=== PATIENT | female | born 1975 | race Caucasian/White ===

== ENCOUNTER 2016-06-25 18:31 | Emergency (ER) | payer OTHER ==
--- NOTE | 2016-06-25 19:57 | ERPHSYRPT ---
- History of Present Illness Time Seen by Provider: 06/25/16 19:50 Source: patient, family Exam Limitations: no limitations Patient Subjective Stated Complaint: PT REPORTS MISSING A STEP ET FALLING ONTO RIGHT KNEE-REPROTS PAIN ONLY WHEN SHE PUTS PRESSURE ON IT-DENIES PAIN ELSEWHERE Triage Nursing Assessment: SUPERFICIAL ABRASIONS NOTED TO RIGHT KNEE-PT LIMPS BUT CAN BEAR WT ON KNEE Physician History: The patient is a 41-year-old female with her complaining that she missed a step while coming out of her house and fell onto her right knee on the concrete. She has an abrasion on the right knee and it hurts to bend the knee and to walk. Her tetanus vaccination is approximate 14 years ago. Her past medical history is unremarkable. Occurred: just prior to arrival Reason for Fall: lost balance, fell from standing pos Injuries/Pain Location: lower extremity (right knee) Loss of Consciousness: no loss of consciousness Quality: aching Severity of Pain-Max: severe Severity of Pain-Current: moderate Modifying Factors: Improves With: nothing Associated Symptoms (Fall): denies symptoms Allergies/Adverse Reactions: No Known Drug Allergies Allergy (Unverified 06/25/16 19:16) Home Medications: No Home Meds 1 ea MC UD 06/25/16 [History] Hx Tetanus, Diphtheria Vaccination/Date Given: No Hx Influenza Vaccination/Date Given: No Hx Pneumococcal Vaccination/Date Given: No Immunizations Up to Date: Yes - Review of Systems Constitutional: No Fever, No Chills Eyes: No Symptoms Ears, Nose, & Throat: No Symptoms Respiratory: No Cough, No Dyspnea Cardiac: No Chest Pain, No Edema, No Syncope Abdominal/Gastrointestinal: No Abdominal Pain, No Nausea, No Vomiting, No Diarrhea Genitourinary Symptoms: No Dysuria Musculoskeletal: Fall, Injury, Joint Pain Skin: Other (abrasion) Neurological: No Dizziness, No Focal Weakness, No Sensory Changes Psychological: No Symptoms Endocrine: No Symptoms Hematologic/Lymphatic: No Symptoms Immunological/Allergic: No Symptoms All Other Systems: Reviewed and Negative - Past Medical History Pertinent Past Medical History: Yes Psycho-Social History: Anxiety, Depression - Past Surgical History Past Surgical History: Yes Gastrointestinal: Cholecystectomy - Social History Smoking Status: Never smoker Exposure to second hand smoke: No Drug Use: none Patient Lives Alone: No - Female History Hx Last Menstrual Period: WK AGO - Nursing Vital Signs Nursing Vital Signs: Initial Vital Signs Temperature 98.1 F Temperature Source Oral Pulse Rate 108 Respiratory Rate 20 Blood Pressure [Right Arm] 158/94 Pain Intensity 0 - Angel Coma Score Best Eye Response ([place]): (4) open spontaneously Best Verbal Response (Angel): (5) oriented Best Motor Response (Angel): (6) obeys commands Angel Total: 15 - Physical Exam General Appearance: mild distress Head Injury: no evidence of injury Eye Exam: PERRL/EOMI ENT Exam: airway nml Neck Exam: normal inspection, No tenderness Respiratory/Chest Exam: normal breath sounds, No chest tenderness, No respiratory distress Cardiovascular Exam: normal heart sounds, regular rate/rhythm Gastrointestinal Exam: soft, No tenderness, No distention, No guarding, No ecchymosis Rectal Exam: not done Back Exam: normal inspection, No vertebral tenderness Extremity Exam: evidence of injury, other (Examination of the right knee reveals numerous superficial abrasions over the surface skin of the patella. This area is also slightly swollen and erythematous. There is tenderness to flexion of the right knee joint. The knee joint has good stability.) Neurologic Exam: alert, oriented x 3, cooperative, sensation nml, No motor deficits Skin Exam: normal color, warm, dry SpO2 Interpretation: normal SpO2: 99 Oxygen Delivery: Room Air - Radiology Exams Right Knee X-ray Interpretation: Interpreted by me, Negative, No Fracture Ordered Tests: Active Orders 24 hr Category Date Time Status Cold Application STAT Care 06/25/16 20:01 Active KNEE (3 VIEWS) Stat Exams 06/25/16 20:01 Ordered Medication Summary Discontinued Medications Generic Name Dose Route Start Last Admin Trade Name Freq PRN Reason Stop Dose Admin Diphtheria/Tetanus/Acell Pertussis 0.5 ml 06/25/16 20:02 06/25/16 20:08 Adacel Vial IM 06/25/16 20:03 0.5 ml .ONCE ONE Administration Diphtheria/Tetanus/Acell Pertussis Confirm 06/25/16 20:05 Adacel Vial Administered 06/25/16 20:06 Dose 0.5 ml IM .STK-MED ONE Ibuprofen 600 mg 06/25/16 20:01 06/25/16 20:08 Motrin 600 Mg PO 06/25/16 20:02 600 mg STAT ONE Administration Ibuprofen Confirm 06/25/16 20:05 Motrin 600 Mg Administered 06/25/16 20:06 Dose 600 mg .ROUTE .STK-MED ONE - Progress Progress: improved Counseled pt/family regarding: diagnosis, rad results - Departure Time of Disposition: 20:41 Departure Disposition: Home Clinical Impression: Contusion of right knee Condition: Stable Critical Care Time: No Additional Instructions: You have a contusion and abrasion of your right knee. You were given ibuprofen 600 mg in the ER. You also were given a tetanus vaccination in the ER. Take tylenol and ibuprofen as needed. Apply ice as needed.
[2016-06-25] MEDS ORDERED: MOTRIN 600 MG PO ONE (20:01)
[2016-06-25] MEDS ORDERED: Adacel Vial IM ONE ×2 (20:02→20:05)
[2016-06-25] MEDS ORDERED: MOTRIN 600 MG ONE (20:05)
[2016-06-25] MEDS ORDERED: BACIGUENT PACKET TP ONE (20:49)
[2016-06-25] MEDS ORDERED: BACIGUENT PACKET ONE (20:51)
[2016-06-25 20:57] VITALS: BP 139/90; PULSE 88; O2SAT 98
--- NOTE | 2016-06-26 09:06 | XRAY ---
Indication: Pain following trauma. Comparison: None 3 views of the right knee obtained. No bony, articular, or soft tissue abnormalities.
== END 2016-06-25 21:00 | disposition home or self-care (01) ==
LOC: ED 18:31
DX: S80.01XA Contusion of right knee, initial encounter (principal); S80.211A Abrasion, right knee, initial encounter; W10.9XXA Fall (on) (from) unspecified stairs and steps, initial encounter
CPT/HCPCS: 73562; 90471; 90715; 99283; A9270-GY

== ENCOUNTER 2019-07-25 15:06 | Emergency (ER) | payer OTHER | END 2019-07-25 16:00 | disposition left against medical advice (07) | LOC: ED 15:06 | DX: Z53.9 Procedure and treatment not carried out, unspecified reason (principal) ==

== ENCOUNTER 2023-09-23 23:13 | Emergency (ER) | payer OTHER ==
[2023-09-23 23:21] VITALS: TEMP 98.1
--- NOTE | 2023-09-23 23:55 | ERPHSYRPT ---
- History of Present Illness Time Seen by Provider: 09/23/23 23:45 Source: patient Exam Limitations: no limitations Patient Subjective Stated Complaint: dizziness, shaking Triage Nursing Assessment: Pt ambulated into ER with standby assist of her h usband. Pt was talking with her sister and became dizzy and started shaking. Pt denies any dizziness at this time. Pt was shaky/wobbly when ambulating into ER. Lungs clear, heart tones reg/tachy, abd lg, soft with with active bs x4 quad, nontender. Pt is alert and oriented x4, spouse at bedside. Pt denies any falls or loc. Physician History: 48-year-old female history of hypercholesterolemia presents to the emergency department for evaluation of acute onset dizziness. Patient was at home sitting speaking to her sister when symptoms started. Patient states she began to shake. Patient states she felt nervous. Symptoms started approximately 1 hour prior to arrival patient felt her gait was unsteady. Patient ambulated in our ED with assistance. Patient states her dizziness has improved not completely resolved. No associated numbness tingling or weakness. No focal or lateralizing symptomology. No nausea no vomiting. Symptoms are moderate in intensity. No specific worsening improving factors. Patient otherwise feels well. She voices no other complaints or concerns at this time. Portions of this note were created with voice recognition technology. There may be grammatical, spelling, punctuation or sound alike errors Timing/Duration: today Severity: moderate Modifying Factors: Improves With: nothing Associated Symptoms: denies symptoms Allergies/Adverse Reactions: No Known Drug Allergies Allergy (Verified 09/23/23 23:34) Home Medications: Duloxetine HCl [Cymbalta] 60 mg PO DAILY 09/23/23 [History] Hx Tetanus, Diphtheria Vaccination/Date Given: Yes Hx Influenza Vaccination/Date Given: No Hx Pneumococcal Vaccination/Date Given: No Travel Risk - International Travel Have you traveled outside of the country in past 3 weeks: No - Emerging Infectious Disease Are you exhibiting symptoms associated with any current EIDs: No - Review of Systems Constitutional: No Symptoms, No Fever, No Chills Eyes: No Symptoms Ears, Nose, & Throat: No Symptoms Respiratory: No Symptoms, No Cough, No Dyspnea Cardiac: No Symptoms, No Chest Pain, No Edema, No Syncope Abdominal/Gastrointestinal: No Symptoms, No Abdominal Pain, No Nausea, No Vomiting, No Diarrhea Genitourinary Symptoms: No Symptoms, No Dysuria Musculoskeletal: No Symptoms, No Back Pain, No Neck Pain Skin: No Symptoms, No Rash Neurological: No Symptoms, No Dizziness, No Focal Weakness, No Sensory Changes Psychological: No Symptoms Endocrine: No Symptoms Hematologic/Lymphatic: No Symptoms Immunological/Allergic: No Symptoms All Other Systems: Reviewed and Negative - Past Medical History Pertinent Past Medical History: Yes Neurological History: No Pertinent History ENT History: No Pertinent History GI Medical History: Gallbladder Disease Psycho-Social History: Anxiety, Depression Other Medical History: pre diabetic. low iron - Past Surgical History Past Surgical History: Yes Gastrointestinal: Cholecystectomy - Female History Hx Last Menstrual Period: 09/18/23 Hx Now: No - Social History Smoking Status: Never smoker Exposure to second hand smoke: No Drug Use: none Patient Lives Alone: No - Social Determinants of Health Will the patient participate in the screening: Yes Do you worry about a steady place to live?: No Do you have any problems with any of the following?: No known problems In the past 12 months,have you had to go without utilities?: No Transportation Issues: No Has anyone in your support network made you feel unsafe?: No Have you or anyone in your house had to go without enough: No - Nursing Vital Signs Nursing Vital Signs: Initial Vital Signs Temperature 98.1 F 09/23/23 23:19 Pulse Rate 116 H 09/23/23 23:19 Respiratory Rate 20 09/23/23 23:19 Blood Pressure 142/100 09/23/23 23:19 O2 Sat by Pulse Oximetry 98 09/23/23 23:19 Pain Scale Pain Intensity 0 - Physical Exam General Appearance: no apparent distress, alert Eye Exam: PERRL/EOMI, eyes nml inspection Ears, Nose, Throat Exam: normal ENT inspection, TMs normal, pharynx normal, moist mucous membranes Neck Exam: normal inspection, non-tender, supple, full range of motion Respiratory Exam: normal breath sounds, lungs clear, airway intact, No respiratory distress Cardiovascular Exam: regular rate/rhythm, normal heart sounds, normal peripheral pulses Gastrointestinal/Abdomen Exam: soft, normal bowel sounds, No tenderness, No mass Back Exam: normal inspection, normal range of motion, No CVA tenderness, No vertebral tenderness Extremity Exam: normal inspection, normal range of motion, pelvis stable Neurologic Exam: alert, oriented x 3, cooperative, normal mood/affect, nml cerebellar function, nml station & gait, sensation nml, No motor deficits Skin Exam: normal color, warm, dry, No rash Lymphatic Exam: No adenopathy SpO2 Interpretation: normal SpO2: 98 O2 Delivery: Room Air - Course Nursing assessment & vital signs reviewed: Yes EKG Interpreted by Me: RATE ([id number]), Sinus Tach, NORMAL AXIS, NORMAL INTERVALS, NORMAL QRS - CT Exams Head CT Interpretation: Tele-radiologist Report (No acute intracranial pathology.) Ordered Tests: Active Orders 24 hr Category Date Time Status Acid Operator STAT Care 09/23/23 23:50 Active EKG-ER Only STAT Care 09/23/23 23:50 Active IV Insertion STAT Care 09/23/23 23:50 Active Pulse Oximetry (ED) STAT Care 09/23/23 23:50 Active HEAD WITHOUT CONTRAST [CT] Stat Exams 09/23/23 23:48 Completed CBC W DIFF Stat Lab 09/23/23 23:56 Completed CMP Stat Lab 09/23/23 23:56 Completed CULTURE,URINE Stat Lab 09/24/23 00:11 Received ETHYL ALCOHOL Stat Lab 09/23/23 23:56 Completed POCT GLUCOSE Stat Lab 09/23/23 23:32 Completed TROPONIN Q4H Lab 09/23/23 23:56 Completed TROPONIN Q4H Lab 09/24/23 03:50 Ordered TROPONIN Q4H Lab 09/24/23 07:50 Ordered UA W/RFX UR CULTURE Stat Lab 09/24/23 00:11 Completed Urine Triage Profile Stat Lab 09/24/23 00:11 Completed Medication Summary Discontinued Medications Generic Name Dose Route Start Last Admin Trade Name Raymundoq PRN Reason Stop Dose Admin Aspirin 324 mg 09/24/23 01:08 09/24/23 01:13 Aspirin 81 Mg Tab.Chew PO 09/24/23 01:09 324 mg STAT ONE Administration Aspirin Confirm 09/24/23 01:12 Aspirin 81 Mg Tab.Chew Administered 09/24/23 01:13 Dose 324 mg .ROUTE .STK-MED ONE Nitrofurantoin Macrocrystals 100 mg 09/24/23 01:06 09/24/23 01:13 Nitrofurantoin Macro 100 Mg Capsule PO 09/24/23 01:07 100 mg STAT ONE Administration Nitrofurantoin Macrocrystals Confirm 09/24/23 01:12 Nitrofurantoin Macro 100 Mg Capsule Administered 09/24/23 01:13 Dose 100 mg .ROUTE .K-MED ONE Lab/Rad Data: Laboratory Result Diagrams 09/23/23 23:56 09/23/23 23:56 Laboratory Results 09/24/23 09/24/23 09/23/23 Range/Units 00:11 00:11 23:56 WBC (3.98-10.04) x10^3/uL RBC (3.93-5.22) x10^6/uL Hgb (11.2-15.7) g/dL Hct (34.1-44.9) % MCV (79.4-94.8) fL MCH (25.6-32.2) pg MCHC (32.2-35.5) g/dL RDW (11.7-14.4) % Plt Count (182-369) x10^3/uL MPV (9.4-12.3) fL Gran % (34.0-71.1) % Immature Gran % (Auto) (0.001-0.429) % Nucleat RBC Rel Count (0.00-0.2) % Eos # (Auto) (0.04-0.36) x10^3/uL Immature Gran # (Auto) (0.001-0.031) x10^3u/L Absolute Lymphs (auto) (1.18-3.74) x10^3/uL Absolute Monos (auto) (0.24-0.86) x10^3/uL Absolute Nucleated RBC (0.00-0.012) x10^3u/L Lymphocytes % (19.3-51.7) % Monocytes % (4.7-12.5) % Eosinophils % (0.7-5.8) % Basophils % (0.1-1.2) % Absolute Granulocytes (1.56-6.13) x10^3/uL Basophils # (0.01-0.08) x10^3/uL Sodium 137 (135-145) mmol/L Potassium 3.9 (3.5-5.1) mmol/L Chloride 105 (98-107) mmol/L Carbon Dioxide 24 (22-30) mmol/L Anion Gap 12.2 (5-15) MEQ/L BUN 14 (7-17) mg/dL Creatinine 0.92 (0.52-1.04) mg/dL Estimated GFR 77.3 ML/MIN Glucose 128 H (74-106) mg/dL POC Glucometer (74 to 106) mg/dL Calcium 9.2 (8.4-10.2) mg/dL Total Bilirubin 0.60 (0.2-1.3) mg/dL AST 18 (14-36) U/L ALT 13 (0-35) U/L Alkaline Phosphatase 103 (38-126) U/L Troponin I < 0.012 (0.000-0.033) ng/mL Serum Total Protein 7.3 (6.3-8.2) g/dL Albumin 3.9 (3.5-5.0) g/dL Urine Color Yellow (Yellow) Urine Appearance Clear (Clear) Urine pH 5.5 (4.6-8.0) Ur Specific [place] 1.015 (1.005-1.030) Urine Protein Negative (Negative) Urine Glucose (UA) Negative (Negative) mg/dL Urine Ketones Negative (Negative) Urine Blood Moderate A (Negative) Urine Nitrite Positive A (Negative) Urine Bilirubin Negative (Negative) Urine Urobilinogen 0.2 (0.2) mg/dL Ur Leukocyte Esterase Trace A (Negative) U Hyaline Cast (Auto) NONE SEEN (0-2) /LPF Urine Microscopic RBC 21-50 A (0-5) /HPF Urine Microscopic WBC 3-5 (0-5) /HPF Ur Epithelial Cells Rare (None Seen) /HPF Urine Bacteria Many A (None Seen) /HPF Urine Culture Reflexed YES (NO) Urine Opiates Level NEGATIVE (NEGATIVE) Ur Methadone NEGATIVE (NEGATIVE) Urine Barbiturates NEGATIVE (NEGATIVE) Ur Phencyclidine (PCP) NEGATIVE (NEGATIVE) Urine Amphetamine NEGATIVE (NEGATIVE) U Benzodiazepine Level NEGATIVE (NEGATIVE) Urine Cocaine NEGATIVE (NEGATIVE) Urine Marijuana (THC) NEGATIVE (NEGATIVE) Ethyl Alcohol < 10 (0-10) mg/dL 09/23/23 09/23/23 Range/Units 23:56 23:32 WBC 7.2 (3.98-10.04) x10^3/uL RBC 4.53 (3.93-5.22) x10^6/uL Hgb 12.1 (11.2-15.7) g/dL Hct 38.8 (34.1-44.9) % MCV 85.7 (79.4-94.8) fL MCH 26.7 (25.6-32.2) pg MCHC 31.2 L (32.2-35.5) g/dL RDW 14.9 H (11.7-14.4) % Plt Count 354 (182-369) x10^3/uL MPV 9.4 (9.4-12.3) fL Gran % 56.3 (34.0-71.1) % Immature Gran % (Auto) 0.3 (0.001-0.429) % Nucleat RBC Rel Count 0.0 (0.00-0.2) % Eos # (Auto) 0.12 (0.04-0.36) x10^3/uL Immature Gran # (Auto) 0.02 (0.001-0.031) x10^3u/L Absolute Lymphs (auto) 2.48 (1.18-3.74) x10^3/uL Absolute Monos (auto) 0.48 (0.24-0.86) x10^3/uL Absolute Nucleated RBC 0.00 (0.00-0.012) x10^3u/L Lymphocytes % 34.3 (19.3-51.7) % Monocytes % 6.6 (4.7-12.5) % Eosinophils % 1.7 (0.7-5.8) % Basophils % 0.8 (0.1-1.2) % Absolute Granulocytes 4.06 (1.56-6.13) x10^3/uL Basophils # 0.06 (0.01-0.08) x10^3/uL Sodium (135-145) mmol/L Potassium (3.5-5.1) mmol/L Chloride (98-107) mmol/L Carbon Dioxide (22-30) mmol/L Anion Gap (5-15) MEQ/L BUN (7-17) mg/dL Creatinine (0.52-1.04) mg/dL Estimated GFR ML/MIN Glucose (74-106) mg/dL POC Glucometer 124 H (74 to 106) mg/dL Calcium (8.4-10.2) mg/dL Total Bilirubin (0.2-1.3) mg/dL AST (14-36) U/L ALT (0-35) U/L Alkaline Phosphatase (38-126) U/L Troponin I (0.000-0.033) ng/mL Serum Total Protein (6.3-8.2) g/dL Albumin (3.5-5.0) g/dL Urine Color (Yellow) Urine Appearance (Clear) Urine pH (4.6-8.0) Ur Specific [place] (1.005-1.030) Urine Protein (Negative) Urine Glucose (UA) (Negative) mg/dL Urine Ketones (Negative) Urine Blood (Negative) Urine Nitrite (Negative) Urine Bilirubin (Negative) Urine Urobilinogen (0.2) mg/dL Ur Leukocyte Esterase (Negative) U Hyaline Cast (Auto) (0-2) /LPF Urine Microscopic RBC (0-5) /HPF Urine Microscopic WBC (0-5) /HPF Ur Epithelial Cells (None Seen) /HPF Urine Bacteria (None Seen) /HPF Urine Culture Reflexed (NO) Urine Opiates Level (NEGATIVE) Ur Methadone (NEGATIVE) Urine Barbiturates (NEGATIVE) Ur Phencyclidine (PCP) (NEGATIVE) Urine Amphetamine (NEGATIVE) U Benzodiazepine Level (NEGATIVE) Urine Cocaine (NEGATIVE) Urine Marijuana (THC) (NEGATIVE) Ethyl Alcohol (0-10) mg/dL - Progress Progress: improved Progress Note: 48-year-old female presents to emergency department for evaluation of acute onset dizziness. Physical exam was negative for focal or lateralizing symptoms. Sensory and motor function intact. Patient appeared anxious. Laboratory workup essentially nonremarkable. Urinalysis reveals urinary tract infection. Patient received an oral dose of Macrobid. A prescription for the same was forw arded to patient's pharmacy. CT head negative for acute intracranial pathology. Patient was evaluated by neurology. Neurology feels the patient's symptoms are peripheral. They do not believe that dizziness was due to a central cause. Per neurologist patient to be discharged home. Patient ambulated throughout our ED with a normal gait. I did check for nystagmus. No nystagmus present. Will discharge home. Patient agrees to follow-up with primary care doctor within 48 hours for reevaluation. Portions of this note were created with voice recognition technology. There may be grammatical, spelling, punctuation or sound alike errors Risk of complication and or risk of morbidity/mortality patient management is moderate. No critical care time. Complex of data reviewed and analyzed is extensive. Test ordered test reviewed results analyzed and correlated clinically with history and physical exam. Risk of complication and or risk of morbidity/mortality patient management is moderate. A prescription for Macrobid forwarded to patient's pharmacy. Vital stable. Time spent to discharge patient is approximately 20 minutes. Plan of care established for shared decision making. No social determinants of health present impede follow-up. Portions of this note were created with voice recognition technology. There may be grammatical, spelling, punctuation or sound alike errors 09/24/23 02:13 09/24/23 02:13 Counseled pt/family regarding: lab results, diagnosis, need for follow-up, rad results - Departure Departure Disposition: Home Clinical Impression: Dizziness, UTI (urinary tract infection) Condition: Stable Critical Care Time: No Referrals: SHELDON CABRAL [Primary Care Provider] - Follow up/PCP as directed Additional Instructions: Discharge/Care Plan CHNATAL LUCERO was seen on 09/24/23 in the Emergency Room. The patient was counseled regarding Diagnosis,Lab results, Imaging studies, need for follow up and when to return to the Emergency Room. Prescriptions given: Discharge Note I have spoken with the patient and/or caregivers. I have explained the patient's condition, diagnosis and treatment plan based on the information available to me at this time. I have answered the patient's and/or caregiver's questions and addressed any concerns. The patient and/or caregivers have as good understanding of the patient's diagnosis, condition and treatment plan as can be expected at this point. The vital signs have been stable. The patient's condition is stable and appropriate for discharge from the emergency department. The patient will pursue further outpatient evaluation with the primary care physician or other designated or consulting physician as outlined in the discharge instructions. The patient and/or caregivers are agreeable to this plan of care and follow-up instructions have been explained in detail. The patient and/or caregivers have received these instruction. The patient/and or caregivers are aware that any significant change in condition or worsening of symptoms should prompt an immediate return to this or the closest emergency department or call 911. Prescriptions: Nitrofurantoin Macro 100 mg [Macrobid 100MG Capsule] 100 mg PO BID 7 Days #14 cap
[2023-09-23 23:58] LABS: Absolute Neutrophil Ct (ANC) 4.06 x10^3/uL (1.56-6.13); BASOPHIL % 0.8 % (0.1-1.2); Basophil (Absolute #) 0.06 x10^3/uL (0.01-0.08); Eosinophil % 1.7 % (0.7-5.8); Eosinophil (Absolute #) 0.12 x10^3/uL (0.04-0.36); Hematocrit 38.8 % (34.1-44.9); Hemoglobin 12.1 g/dL (11.2-15.7); IMMATURE GRAN # 0.02 x10^3u/L (0.001-0.031); IMMATURE GRAN % 0.3 % (0.001-0.429); Lymphocyte (Absolute #) 2.48 x10^3/uL (1.18-3.74); Lymphocytes % 34.3 % (19.3-51.7); Mean Cell Volume 85.7 fL (79.4-94.8); Mean Corpuscular Hemoglobin 26.7 pg (25.6-32.2); Mean Corpuscular Hgb Concent. 31.2 g/dL (32.2-35.5); Mean Platelet Volume 9.4 fL (9.4-12.3); Monocyte (Absolute #) 0.48 x10^3/uL (0.24-0.86); Monocytes % 6.6 % (4.7-12.5); Neutrophil % 56.3 % (34.0-71.1); Platelet Count 354 x10^3/uL (182-369); Red Blood Count 4.53 x10^6/uL (3.93-5.22); Red Cell Distribution Width 14.9 % (11.7-14.4); White Blood Count 7.2 x10^3/uL (3.98-10.04)
[2023-09-24 00:24] LABS: ALBUMIN 3.9 g/dL (3.5-5.0); ALKALINE PHOSPHATASE 103 U/L (38-126); ANION GAP 12.2 MEQ/L (5-15); BLOOD UREA NITROGEN 14 mg/dL (7-17); CHLORIDE 105 mmol/L (98-107); Calcium 9.2 mg/dL (8.4-10.2); Carbon Dioxide 24 mmol/L (22-30); Creatinine 1 0.92 mg/dL (0.52-1.04); EST GLOMERULAR FILTRATION RATE 77.3 ML/MIN; ETHYL ALCOHOL < 10 mg/dL (0-10); Glucose 128 mg/dL (74-106); Potassium 3.9 mmol/L (3.5-5.1); SGOT/AST 18 U/L (14-36); SGPT/ALT 13 U/L (0-35); SODIUM 137 mmol/L (135-145); TROPONIN < 0.012 ng/mL (0.000-0.033); Total Protein 7.3 g/dL (6.3-8.2)
--- NOTE | 2023-09-24 00:32 | XRAY ---
CLINICAL HISTORY: dizziness COMPARISON: None. TECHNIQUE: Axial noncontrast CT scan of the brain was performed from the skull base to the high parietal region .One of the following dose reduction techniques were utilized for this exam: Automated exposure control, adjustment of the mA and/or kV according to patient size, use of iterative reconstruction. FINDINGS: The visualized brain parenchyma shows normal appearance. Hale-white matter differentiation is maintained. No midline shifts or deformity. No intracerebral or extra axial hematoma. Normal size and configuration of the cerebral ventricles. Normal CT appearance of the posterior fossa structures namely the cerebellar hemispheres, brainstem and cerebellar peduncles. The IACs are unremarkable. The cerebello-pontine angles are clear. The osseous structures in the skull base are unremarkable. No definite calvarium fractures. The scanned paranasal sinuses are clear. Bilateral mastoid air cells appear unremarkable. IMPRESSION: No significant acute abnormality detected in plain CT head. Early changes of stroke may not be detected on a CT scan. If strong clinical suspicion of stroke then suggest MRI with diffusion-weighted imaging. Electronically Signed by: Mikael Morejon MD. (09/24/2023 00:28:39 EDT)
[2023-09-24 00:37] LABS: Amphetamine,Urine NEGATIVE (NEGATIVE); Barbiturate,Urine NEGATIVE (NEGATIVE); Benzodiazepine,Urine NEGATIVE (NEGATIVE); Cocaine,Urine NEGATIVE (NEGATIVE); Methadone,Urine NEGATIVE (NEGATIVE); Opiate,Urine NEGATIVE (NEGATIVE); PCP,Urine NEGATIVE (NEGATIVE); THC,Urine NEGATIVE (NEGATIVE)
[2023-09-24 01:02] LABS: Appearance Clear (Clear); Bacteria Many /HPF (None Seen); Bilirubin Negative (Negative); Blood Moderate (Negative); Epithelial Cells Rare /HPF (None Seen); Glucose, Urine Negative (Negative); Hyaline Casts NONE SEEN /LPF (0-2); Ketones Negative (Negative); Leukocyte Esterase Trace (Negative); Nitrite Positive (Negative); Ph 5.5 (4.6-8.0); Protein,Urine Dip Negative (Negative); RBC 21-50 /HPF (0-5); Specific Gravity 1.015 (1.005-1.030); Urobilinogen 0.2 mg/dL (0.2)
[2023-09-24 01:03] LABS: ADD URINE CULTURE? YES (NO)
[2023-09-24 01:05] VITALS: O2SAT 98
[2023-09-24] MEDS ORDERED: BABY ASPIRIN 81 MG CHEW ONE (01:12)
[2023-09-24] MEDS ORDERED: Macrobid 100MG Capsule ONE (01:12)
[2023-09-24] MEDS: BABY ASPIRIN 81 MG CHEW PO ONE (01:13)
[2023-09-24] MEDS: Macrobid 100MG Capsule PO ONE (01:13)
[2023-09-24 02:07] VITALS: BP 150/94; PULSE 98; RESP 18
== END 2023-09-24 02:20 | disposition home or self-care (01) ==
LOC: ED 23:13
DX: N39.0 Urinary tract infection, site not specified (principal); R42 Dizziness and giddiness; Z79.899 Other long term (current) drug therapy
CPT/HCPCS: 36000; 36415; 70450; 80053; 80307; 81001; 82077; 82947; 84484; 85025; 87077; 87086; 87186; 93005; 93041; 94760; 99284; A9270-GY